=== PATIENT | male | born 1970 | race American Indian/Alaskan Native ===

== ENCOUNTER 2022-05-22 10:29 | Emergency (ER) | payer OTHER ==
[2022-05-22 10:46] VITALS: BP 170/99
[2022-05-22] MEDS ORDERED: LIDOCAINE (1%) 10 MG/1 ML VIAL 20 ML MDV INFILTRATI ONE (11:13)
[2022-05-22] MEDS ORDERED: oxyCODONE /ACETAMINOPHEN 5-325MG TAB PO ONE (11:30)
[2022-05-22] MEDS ORDERED: ONDANSETRON 4 MG/2 ML INJ IV ONE (11:30)
[2022-05-22] MEDS ORDERED: PHENYLEPHRINE 1 MG, SODIUM CHLORIDE P/F VIAL 10 ML 9.9 ML IJ**NOT IV ONE (11:30)
--- NOTE | 2022-05-22 13:13 | Emergency Department Report ---
ED Male HPI - General Chief complaint: Urogenital-Male Stated complaint: PRIAPISM Time Seen by Provider: 05/22/22 11:08 Source: patient Mode of arrival: Ambulatory Limitations: No Limitations - History of Present Illness Initial comments: Patient is a 51-year-old male presenting to ED with complaint of priapism since 2 AM this morning after taking ED medication last night. He reports previous episodes of priapism requiring drainage in ED. - Related Data Allergies Allergy/AdvReac Type Severity Reaction Status Date / Time No Known Allergies Allergy Verified 05/22/22 10:46 ED Review of Systems ROS: Stated complaint: PRIAPISM Other details as noted in HPI Constitutional: denies: chills, fever Respiratory: denies: cough, shortness of breath, wheezing Cardiovascular: denies: chest pain, palpitations Gastrointestinal: denies: abdominal pain, nausea, diarrhea Musculoskeletal: denies: back pain, joint swelling, arthralgia Skin: denies: rash, lesions Neurological: denies: headache, weakness, paresthesias Psychiatric: denies: anxiety, depression ED Past Medical Hx - Past Medical History Hx Hypertension: Yes Additional medical history: hypothyroid - Surgical History Additional Surgical History: thyroid removal - Social History Smoking Status: Never Smoker ED Physical Exam - General Limitations: No Limitations General appearance: alert, in no apparent distress - Head Head exam: Present: atraumatic, normocephalic - Neck Neck exam: Present: normal inspection - Respiratory Respiratory exam: Present: normal lung sounds bilaterally. Absent: respiratory distress - Cardiovascular Cardiovascular Exam: Present: regular rate, normal rhythm, normal heart sounds - GI/Abdominal GI/Abdominal exam: Present: soft. Absent: tenderness - exam: Present: other (Penis erect). Absent: testicular tenderness, urethral discharge, circumcision - Neurological Exam Neurological exam: Present: alert, oriented X3, CN II-XII intact - Psychiatric Psychiatric exam: Present: normal affect, normal mood - Skin Skin exam: Present: warm, dry, intact, normal color ED Course Vital Signs 05/22/22 10:44 Temperature 98 F Pulse Rate 80 Respiratory 18 Rate Blood Pressure 170/99 [Right] O2 Sat by Pulse 99 Oximetry - Penile Procedure Consent Obtained: verbal consent Time Out Performed: Yes Indication: priapism management Procedural Sedation: No Local Anesthesia Used: Local Injection Amount of Anesthesia Used (mls): 3 Priapism Management: aspiration, phenylephrine injection Complications: none Patient Tolerated Procedure: well, no complications ED Medical Decision Making - Medical Decision Making Patient presenting with priapism. Phenylephrine injected into corpora cavernosa followed by aspiration. This was followed by additional injection of phenylephrine 15 minutes later. Patient reassessed 10 minutes afterwards with successful resolution. Patient stable for discharge. Critical Care Time: Yes Critical care time in (mins) excluding proc time.: 40 Critical care attestation.: If time is entered above; I have spent that time in minutes in the direct care of this critically ill patient, excluding procedure time. ED Disposition Clinical Impression: Priapism, drug-induced Disposition: 01 HOME / SELF CARE / HOMELESS Is pt being admited?: No Does the pt Need Aspirin: No Condition: Stable Referrals: PRIMARY CARE, [Primary Care Provider] - 3-5 Days
== END 2022-05-22 13:20 | disposition home or self-care (01) ==
LOC: ED 10:29
DX: N48.33 Priapism, drug-induced (principal); Z79.899 Other long term (current) drug therapy
CPT/HCPCS: 54220; 99282; J2370; 96374